=== PATIENT | male | born 1970 | race Caucasian/White ===

== ENCOUNTER 2018-07-25 23:01 | Inpatient (IN) | payer MEDICARE ==
[~2018-07-25] VITALS: Ht 182.9 cm; Wt 176.7 kg
--- NOTE | 2018-07-26 00:29 | NUR ---
ASSUMED CARE OF PATIENT. PATIENT REPORTS PAINFUL URINATION AND TOOTH PAIN. NO ACUTE DISTRESS NOTED. CALL LIGHT IN PLACE. WILL CONTINUE TO MONITOR.
[2018-07-26 00:46] LABS: MEAN CORPUSCULAR HEMOGLOBIN 30.6 pg (27.5-34.5); MEAN CORPUSCULAR HGB CONC 34.6 g/dL (33.2-36.2); MEAN CORPUSCULAR VOLUME 88.5 fL (81-97); MEAN PLATELET VOLUME 9.5 fL (7.4-10.4); PLATELET COUNT 170 x10^3/uL (130-400); RED BLOOD COUNT 5.32 x10^6/uL (4.38-5.82); RED CELL DISTRIBUTION WIDTH 12.9 % (9.4-14.8)
[2018-07-26 00:54] LABS: ANION GAP 7 mmol/L (5-15); CALCIUM 8.2 mg/dL (8.5-10.1); CHLORIDE 108 mmol/L (98-107); CREATININE 1.44 mg/dL (0.7-1.3)
[2018-07-26] MEDS ORDERED: ONDANSETRON ODT 4 MG PO ONE (01:00)
[2018-07-26] MEDS ORDERED: ONDANSETRON ODT 4 MG ONE (01:04)
--- NOTE | 2018-07-26 01:22 | NUR ---
blood and BC x 2 drawn by lab instructor. flu swabs and urine sample collected and sent to lab.
--- NOTE | 2018-07-26 01:22 | NUR ---
patient to x ray.
[2018-07-26] MEDS ORDERED: IBUPROFEN 200 MG TABLET PO ONE (01:30)
[2018-07-26 01:32] LABS: BASOPHILS # (AUTO) 0.02 x10^3/uL (0-0.1); BASOPHILS % (AUTO) 0 % (0-1); EOSINOPHILS # (AUTO) 0.03 x10^3/uL (0-0.4); EOSINOPHILS % (AUTO) 0 % (1-7); LYMPHOCYTES % (AUTO) 2 % (22-44); MD SCAN; MONOCYTES # (AUTO) 0.36 x10^3/uL (0.2-0.8); MONOCYTES % (AUTO) 2 % (2-9); NEUTROPHILS % (AUTO) 96 % (42-75)
[2018-07-26] MEDS ORDERED: IBUPROFEN 600 MG TABLET ONE (01:32)
[2018-07-26 01:35] LABS: CULTURE INDICATED? YES; MICROSCOPIC INDICATED
[2018-07-26 01:47] LABS: RAPID INFLUENZA A Negative (Negative); RAPID INFLUENZA B Negative (Negative)
[2018-07-26] MEDS ORDERED: HYDROmorphone 2 MG/ML, 1ML IV ONE (02:00)
[2018-07-26] MEDS ORDERED: CEFTRIAXONE PMX 2GM/50ML 50 ML IV ONE (02:00)
--- NOTE | 2018-07-26 02:03 | NUR ---
back from X ray. medicated for headache.
[2018-07-26] MEDS ORDERED: CEFTRIAXONE PMX 2GM/50ML 50 ML ONE (02:05)
[2018-07-26] MEDS ORDERED: HYDROmorphone 2 MG/ML, 1ML ONE (02:05)
--- NOTE | 2018-07-26 02:22 | NUR ---
IV placed. medicated for pain. patient to CT scan.
--- NOTE | 2018-07-26 02:38 | NUR ---
back from CT scan. antibiotic started.
--- NOTE | 2018-07-26 02:45 | NUR ---
bed assigned. report to KENDY Duarte
[2018-07-26 03:32] VITALS: BP 105/78
[2018-07-26] MEDS ORDERED: ONDANSETRON ODT 4 MG PO PRN (04:30)
[2018-07-26] MEDS ORDERED: ACETAMINOPHEN 325 MG TABLET PO PRN (04:30)
[2018-07-26] MEDS ORDERED: hydrALAzine 20 MG/ML, 1ML IVPush PRN (04:30)
[2018-07-26] MEDS ORDERED: ZOLPIDEM 5MG TABLET PO PRN (04:30)
[2018-07-26] MEDS: ONDANSETRON 2MG/ML, 2ML IVPush PRN ×2 (04:57→08:17)
[2018-07-26] MEDS: KETOROLAC 30 MG/1 ML IV PRN ×4 (04:57→22:55)
[2018-07-26] MEDS: ENOXAPARIN 40 MG/0.4 ML SQ SCH (04:58)
[2018-07-26] MEDS: SODIUM CHLORIDE 0.9% 1,000 ML IV SCH ×3 (05:10→17:47)
[2018-07-26 06:51] VITALS: BP 132/83
[2018-07-26] MEDS ORDERED: METH10TA4 PO (07:56)
[2018-07-26] MEDS ORDERED: ZOLP5TAB PO (08:00)
[2018-07-26] MEDS ORDERED: GABA-826 PO (08:38)
[2018-07-26] MEDS ORDERED: LEVO25TA2 PO (08:38)
[2018-07-26] MEDS ORDERED: LORA-446 PO (08:38)
[2018-07-26] MEDS ORDERED: BUPR75TA6 PO (08:38)
[2018-07-26] MEDS ORDERED: TOPI100T39 PO (08:38)
[2018-07-26] MEDS ORDERED: BENZ1TAB61 PO (08:38)
[2018-07-26] MEDS ORDERED: HALO5TAB5 PO (08:38)
[2018-07-26] MEDS ORDERED: OXYC-307 PO (08:38)
[2018-07-26] MEDS ORDERED: TRAM50TA2 PO (08:38)
[2018-07-26] MEDS: OXYcodone/APAP 10/325MG TABLET PO SCH ×3 (11:00→21:01)
[2018-07-26 12:40] VITALS: BP 123/80
[2018-07-26] MEDS: GABAPENTIN 400 MG CAPSULE PO SCH ×2 (14:35→21:02)
[2018-07-26] MEDS ORDERED: DIPHENHYDRAMINE 25 MG CAPSULE PO PRN (15:30)
[2018-07-26 19:24] VITALS: BP 123/82
[2018-07-26] MEDS ORDERED: FAMOTIDINE 20 MG TABLET PO SCH (21:00)
[2018-07-26] MEDS: BENZTROPINE 1 MG TABLET PO SCH (21:02)
[2018-07-26] MEDS: FAMOTIDINE 20 MG TABLET PO SCH (21:02)
[2018-07-26] MEDS: ZOLPIDEM 10MG TABLET PO SCH (21:02)
[2018-07-26] MEDS: TOPIRAMATE 100 MG TABLET PO SCH (21:02)
[2018-07-27] MEDS: SODIUM CHLORIDE 0.9% 1,000 ML IV SCH ×4 (00:30→23:30)
[2018-07-27 01:10] VITALS: BP 120/70
[2018-07-27] MEDS: CEFTRIAXONE PMX 2GM/50ML 50 ML IV SCH (02:00)
[2018-07-27] MEDS: LEVOTHYROXINE 125 MCG TABLET PO SCH (05:45)
[2018-07-27] MEDS: ENOXAPARIN 40 MG/0.4 ML SQ SCH (05:46)
[2018-07-27] MEDS: OXYcodone/APAP 10/325MG TABLET PO SCH ×4 (06:00→21:01)
[2018-07-27 06:03] LABS: BASOPHILS # (AUTO) 0.04 x10^3/uL (0-0.1); BASOPHILS % (AUTO) 1 % (0-1); EOSINOPHILS # (AUTO) 0.17 x10^3/uL (0-0.4); EOSINOPHILS % (AUTO) 3 % (1-7); LYMPHOCYTES # (AUTO) 1.18 x10^3/uL (1-3.4); LYMPHOCYTES % (AUTO) 20 % (22-44); MD NO; MEAN CORPUSCULAR HGB CONC 33.5 g/dL (33.2-36.2); MEAN CORPUSCULAR VOLUME 89.5 fL (81-97); MEAN PLATELET VOLUME 9.8 fL (7.4-10.4); MONOCYTES # (AUTO) 0.59 x10^3/uL (0.2-0.8); MONOCYTES % (AUTO) 10 % (2-9); NEUTROPHILS # (AUTO) 4.04 x10^3/uL (1.8-6.8); NEUTROPHILS % (AUTO) 67 % (42-75); PLATELET COUNT 149 x10^3/uL (130-400); RED BLOOD COUNT 4.84 x10^6/uL (4.38-5.82); RED CELL DISTRIBUTION WIDTH 13.2 % (9.4-14.8)
[2018-07-27 06:05] LABS: CHLORIDE 111 mmol/L (98-107)
[2018-07-27 06:16] LABS: ALANINE AMINOTRANSFERASE 51 U/L (12-78); ALKALINE PHOSPHATASE 115 U/L (45-117); ANION GAP 5 mmol/L (5-15); BILIRUBIN,TOTAL 0.2 mg/dL (0.2-1.0); CALCIUM 8.2 mg/dL (8.5-10.1); CREATININE 1.17 mg/dL (0.7-1.3); TOTAL PROTEIN 6.3 g/dL (6.4-8.2)
[2018-07-27 07:41] VITALS: BP 121/84
[2018-07-27] MEDS: TOPIRAMATE 100 MG TABLET PO SCH ×2 (07:48→21:01)
[2018-07-27] MEDS: GABAPENTIN 400 MG CAPSULE PO SCH ×3 (07:48→21:01)
[2018-07-27] MEDS: FAMOTIDINE 20 MG TABLET PO SCH ×2 (07:48→19:39)
[2018-07-27] MEDS: BENZTROPINE 1 MG TABLET PO SCH ×2 (07:48→21:01)
[2018-07-27] MEDS: KETOROLAC 30 MG/1 ML IV PRN ×3 (07:51→21:01)
[2018-07-27 13:13] VITALS: BP 135/80
[2018-07-27] MEDS ORDERED: SENNA/DOCUSATE TABLET ONE (14:09)
[2018-07-27] MEDS ORDERED: SENNA/DOCUSATE TABLET PO PRN (14:30)
[2018-07-27 19:50] VITALS: BP 112/74
[2018-07-27] MEDS: ZOLPIDEM 10MG TABLET PO SCH (23:31)
[2018-07-28] MEDS: CEFTRIAXONE PMX 2GM/50ML 50 ML IV SCH (01:57)
[2018-07-28 02:13] VITALS: BP 112/64
[2018-07-28] MEDS: KETOROLAC 30 MG/1 ML IV PRN ×3 (04:14→16:29)
[2018-07-28] MEDS: OXYcodone/APAP 10/325MG TABLET PO SCH ×2 (04:15→10:33)
[2018-07-28 05:32] LABS: BASOPHILS # (AUTO) 0.06 x10^3/uL (0-0.1); BASOPHILS % (AUTO) 1 % (0-1); EOSINOPHILS # (AUTO) 0.23 x10^3/uL (0-0.4); EOSINOPHILS % (AUTO) 4 % (1-7); LYMPHOCYTES # (AUTO) 1.97 x10^3/uL (1-3.4); LYMPHOCYTES % (AUTO) 36 % (22-44); MD NO; MEAN CORPUSCULAR HEMOGLOBIN 30.7 pg (27.5-34.5); MEAN CORPUSCULAR HGB CONC 34.6 g/dL (33.2-36.2); MEAN CORPUSCULAR VOLUME 88.8 fL (81-97); MEAN PLATELET VOLUME 10.1 fL (7.4-10.4); MONOCYTES # (AUTO) 0.68 x10^3/uL (0.2-0.8); MONOCYTES % (AUTO) 12 % (2-9); NEUTROPHILS # (AUTO) 2.56 x10^3/uL (1.8-6.8); NEUTROPHILS % (AUTO) 47 % (42-75); PLATELET COUNT 158 x10^3/uL (130-400); RED BLOOD COUNT 4.63 x10^6/uL (4.38-5.82); RED CELL DISTRIBUTION WIDTH 13.2 % (9.4-14.8)
[2018-07-28 05:45] LABS: CHLORIDE 113 mmol/L (98-107)
[2018-07-28 05:52] LABS: ALANINE AMINOTRANSFERASE 41 U/L (12-78); ALKALINE PHOSPHATASE 110 U/L (45-117); ANION GAP 4 mmol/L (5-15); BILIRUBIN,TOTAL 0.3 mg/dL (0.2-1.0); CALCIUM 8.4 mg/dL (8.5-10.1); CREATININE 1.19 mg/dL (0.7-1.3); TOTAL PROTEIN 6.2 g/dL (6.4-8.2)
[2018-07-28] MEDS: LEVOTHYROXINE 125 MCG TABLET PO SCH (06:37)
[2018-07-28] MEDS: ENOXAPARIN 40 MG/0.4 ML SQ SCH (06:40)
[2018-07-28 08:12] VITALS: BP 137/73
[2018-07-28] MEDS: BENZTROPINE 1 MG TABLET PO SCH (08:15)
[2018-07-28] MEDS: FAMOTIDINE 20 MG TABLET PO SCH (08:15)
[2018-07-28] MEDS: TOPIRAMATE 100 MG TABLET PO SCH (08:15)
[2018-07-28] MEDS: SODIUM CHLORIDE 0.9% 1,000 ML IV SCH ×2 (08:15→13:49)
[2018-07-28] MEDS: GABAPENTIN 400 MG CAPSULE PO SCH ×2 (08:15→16:28)
[2018-07-28 12:45] LABS: MICROSCOPIC NOT IND
[2018-07-28] MEDS ORDERED: OXYcodone 5 MG/5 ML ORAL.SOL UDC PO PRN (13:00)
[2018-07-28] MEDS ORDERED: CEFD300C37 PO (13:04)
[2018-07-28 13:33] VITALS: BP 123/79
[2018-07-28] MEDS ORDERED: OXYcodone IR 5MG TABLET PO PRN (16:30)
[2018-07-28 16:34] VITALS: BP 137/88
== END 2018-07-28 19:00 | disposition home or self-care (01) | DRG 871 ==
LOC: ED 07-26 01:50 → EDIP 07-26 01:54 → 4NOR 07-26 03:27
PROVIDERS: ADMIT Hospitalist; ATTEND Hospitalist
PROC: 0T9B70Z Drainage of Bladder with Drainage Device, Via Natural or Artificial Opening (ICD-10-PCS; principal; 2018-07-28)
DX: A41.9 Sepsis, unspecified organism (principal); N17.0 Acute kidney failure with tubular necrosis; N12 Tubulo-interstitial nephritis, not specified as acute or chronic; Z88.5 Allergy status to narcotic agent; Z88.8 Allergy status to other drugs, medicaments and biological substances; E03.9 Hypothyroidism, unspecified; E66.01 Morbid (severe) obesity due to excess calories; Z71.3 Dietary counseling and surveillance; E86.0 Dehydration; F31.9 Bipolar disorder, unspecified; F43.10 Post-traumatic stress disorder, unspecified; G25.81 Restless legs syndrome; K02.9 Dental caries, unspecified; S02.5XXA Fracture of tooth (traumatic), initial encounter for closed fracture; X58.XXXA Exposure to other specified factors, initial encounter; Y93.89 Activity, other specified; Y92.89 Other specified places as the place of occurrence of the external cause; Y99.8 Other external cause status; Z82.49 Family history of ischemic heart disease and other diseases of the circulatory system; Z83.3 Family history of diabetes mellitus
CPT/HCPCS: 36415; 71046; 74176; 80048; 80053; 81001; 81003; 83605; 83735; 84100; 84145; 85025; 87040; 87086; 87400; 96374; 96375; 99291; G0378; J0696; J1170; J1650; J1885; J2405; Q0162; J7030; Q0163

== ENCOUNTER 2019-09-08 23:13 | Emergency (ER) | payer MEDICARE ==
[~2019-09-08] VITALS: Ht 177.8 cm; Wt 159.4 kg
[~2019-09-08 23:13] MED LIST: BENZ1TAB61 PO; BUPR75TA6 PO; CEFD300C37 PO; GABA-826 PO; HALO5TAB5 PO; LEVO25TA2 PO; LORA-446 PO; METH10TA4 PO; OXYC-307 PO; TOPI100T39 PO; TRAM50TA2 PO; ZOLP5TAB PO
--- NOTE | 2019-09-08 23:49 | NUR ---
THIS IS A 48 YO MALE COMING IN FOR LEFT SIDED FACIAL PAIN AND GORDON WITH INTERMITTENT NUMBNESS STARTING 3 DAYS AGO. PT WSA SEEN AT [facility] YESTERDAY AND SENT HOME WITH "HIGH DOSE ANTIBIOTICS AND STEROIDS", WHEN ASKED WHAT HE WAS DIAGNOSED WITH THERE, PT STATES "THEY DON'T KNOW". PT A&OX4, DENIES N/V, DENIES ABD PAIN/SOB/CP, STATES "I'VE BEEN DRINKING A LOT OF WATER AND HAVING THE URGE TO PEE A LOT BUT NOT A LOT COMES OUT EVERY TIME". VSS, NAD AT THIS TIME, ACCOMPANIED BY SIGNIFICANT OTHER. CALL LIGHT IN REACH
[2019-09-08] MEDS ORDERED: DIPHENHYDRAMINE 50 MG/ML, 1ML ONE (23:56)
[2019-09-08] MEDS ORDERED: PROCHLORPERAZINE 5 MG/ML, 2ML ONE (23:56)
[2019-09-08] MEDS ORDERED: KETOROLAC 30 MG/1 ML ONE (23:56)
[2019-09-09] MEDS ORDERED: DIPHENHYDRAMINE 50 MG/ML, 1ML IVPush ONE
[2019-09-09] MEDS ORDERED: KETOROLAC 30 MG/1 ML IVPush ONE
[2019-09-09] MEDS ORDERED: PROCHLORPERAZINE 5 MG/ML, 2ML IVPush ONE
--- NOTE | 2019-09-09 00:17 | NUR ---
BREAK RN: IV ESTABLISHED, PT MEDICATED PER SEP, LABS DRAWN. PT. WAS AMBULATORY TO BR WITH STEADY GAIT AND BACK TO ROOM BEFORE IV START.
[2019-09-09 00:32] LABS: BASOPHILS # (AUTO) 0.03 x10^3/uL (0-0.1); BASOPHILS % (AUTO) 0 % (0-1); EOSINOPHILS # (AUTO) 0.23 x10^3/uL (0-0.4); EOSINOPHILS % (AUTO) 3 % (1-7); LYMPHOCYTES # (AUTO) 1.82 x10^3/uL (1-3.4); LYMPHOCYTES % (AUTO) 22 % (22-44); MD NO; MEAN CORPUSCULAR HEMOGLOBIN 29.2 pg (27.5-34.5); MEAN CORPUSCULAR HGB CONC 33.7 g/dL (33.2-36.2); MEAN CORPUSCULAR VOLUME 86.7 fL (81-97); MEAN PLATELET VOLUME 10.2 fL (7.4-10.4); MONOCYTES # (AUTO) 0.74 x10^3/uL (0.2-0.8); MONOCYTES % (AUTO) 9 % (2-9); NEUTROPHILS # (AUTO) 5.51 x10^3/uL (1.8-6.8); NEUTROPHILS % (AUTO) 66 % (42-75); PLATELET COUNT 165 x10^3/uL (130-400); RED BLOOD COUNT 5.01 x10^6/uL (4.38-5.82); RED CELL DISTRIBUTION WIDTH 12.9 % (9.4-14.8)
--- NOTE | 2019-09-09 00:34 | NUR ---
REPORT BACK TO STEPHANIE Gordon RN TO REASSUME CARE OF PT.
[2019-09-09 00:38] LABS: ALBUMIN 3.4 g/dL (3.4-5.0); ANION GAP 7 mmol/L (5-15); CALCIUM 8.2 mg/dL (8.5-10.1); CHLORIDE 116 mmol/L (98-107); CREATININE 1.11 mg/dL (0.7-1.3)
[2019-09-09 01:08] VITALS: BP 133/96
--- NOTE | 2019-09-09 01:08 | NUR ---
PATIENT SLEEPING AT THIS TIME, LEFT UNDISTURBED. RESPIRATIONS EVEN AND UNLABORED. VSS, CALL LIGHT IN REACH.
--- NOTE | 2019-09-09 01:39 | NUR ---
Patient/Caregiver given discharge instructions and they have confirmed that they understand the instructions. Patient ambulatory with steady gait.
== END 2019-09-09 01:49 | disposition home or self-care (01) ==
LOC: ED 09-09 01:30
DX: R51 Headache (principal); E03.9 Hypothyroidism, unspecified; E78.5 Hyperlipidemia, unspecified; G89.29 Other chronic pain; Z90.89 Acquired absence of other organs
CPT/HCPCS: 36415; 80048; 82040; 85025; 96374; 96375; 99284; J0780; J1200; J1885

== ENCOUNTER 2020-02-17 21:57 | Emergency (ER) | payer MEDICARE ==
[~2020-02-17] VITALS: Ht 177.8 cm; Wt 167.5 kg
[2020-02-17 22:31] LABS: MICROSCOPIC AUTO
[2020-02-17] MEDS ORDERED: SODIUM CHLORIDE FLUSH 10ML SYR IVF ONE ×2 (23:00→23:30)
[2020-02-17] MEDS ORDERED: CEFTRIAXONE PMX 1GM/50ML 50 ML IVPB ONE (23:00)
[2020-02-17] MEDS ORDERED: SODIUM CHLORIDE 0.9% 1,000ML IVBOLUS ONE ×2 (23:00→23:30)
[2020-02-17] MEDS ORDERED: ACETAMINOPHEN 500 MG TABLET PO ONE (23:00)
[2020-02-17] MEDS ORDERED: IBUPROFEN 800 MG TABLET PO STA (23:11)
[2020-02-17] MEDS ORDERED: OXYcodone/APAP 5/325MG TABLET PO ONE (23:30)
[2020-02-17] MEDS ORDERED: ONDANSETRON 2MG/ML, 2ML IVPush ONE (23:30)
[2020-02-17 23:34] LABS: MEAN CORPUSCULAR HEMOGLOBIN 28.6 pg (27.5-34.5); MEAN CORPUSCULAR HGB CONC 32.2 g/dL (33.2-36.2); MEAN CORPUSCULAR VOLUME 88.8 fL (81-97); MEAN PLATELET VOLUME 9.3 fL (7.4-10.4); PLATELET COUNT 148 x10^3/uL (130-400); RED BLOOD COUNT 5.31 x10^6/uL (4.38-5.82); RED CELL DISTRIBUTION WIDTH 14.1 % (9.4-14.8)
[2020-02-17 23:39] LABS: BASOPHILS # (AUTO) 0.01 x10^3/uL (0-0.1); BASOPHILS % (AUTO) 0 % (0-1); EOSINOPHILS # (AUTO) 0.02 x10^3/uL (0-0.4); EOSINOPHILS % (AUTO) 0 % (1-7); LYMPHOCYTES # (AUTO) 0.65 x10^3/uL (1-3.4); LYMPHOCYTES % (AUTO) 7 % (22-44); MD NO; MONOCYTES # (AUTO) 0.32 x10^3/uL (0.2-0.8); MONOCYTES % (AUTO) 3 % (2-9); NEUTROPHILS # (AUTO) 8.69 x10^3/uL (1.8-6.8); NEUTROPHILS % (AUTO) 90 % (42-75)
[2020-02-17] MEDS ORDERED: CEFTRIAXONE PMX 1GM/50ML 50 ML ONE (23:42)
[2020-02-17] MEDS ORDERED: OXYcodone/APAP 5/325MG TABLET ONE (23:42)
[2020-02-17] MEDS ORDERED: ONDANSETRON 2MG/ML, 2ML ONE (23:42)
[2020-02-17] MEDS ORDERED: IBUPROFEN 800 MG TABLET ONE (23:42)
[2020-02-17 23:45] LABS: ALBUMIN 3.8 g/dL (3.4-5.0); ANION GAP 6 mmol/L (5-15); CALCIUM 8.2 mg/dL (8.5-10.1); CHLORIDE 109 mmol/L (98-107)
[2020-02-17 23:49] LABS: ALANINE AMINOTRANSFERASE 24 U/L (12-78); ALKALINE PHOSPHATASE 91 U/L (45-117); BILIRUBIN,TOTAL 0.9 mg/dL (0.2-1.0); TOTAL PROTEIN 7.2 g/dL (6.4-8.2)
--- NOTE | 2020-02-17 23:53 | NUR ---
Pt PIV placed with second culture draw. Pt medicated per SEP. Verbal order from PA to hold tylenol d/t percocet order.
[2020-02-18 00:29] VITALS: BP 103/64
--- NOTE | 2020-02-18 00:52 | NUR ---
Pt d/c'd to self care. Pt alert, oriented and ambulatory. NAD. Pt educated on home care, RX's, and follow-up. Pt VU. Pt ambulatory out of ER.
== END 2020-02-18 00:54 | disposition home or self-care (01) ==
LOC: ED 23:09
DX: N30.00 Acute cystitis without hematuria (principal); R10.84 Generalized abdominal pain; G89.29 Other chronic pain; R50.9 Fever, unspecified; Z87.891 Personal history of nicotine dependence
CPT/HCPCS: 36415; 80053; 81001; 83605; 85025; 87040; 87086; 96365; 96375; 99284; J0696; J2405; J7030

== ENCOUNTER 2021-02-15 12:01 | Inpatient (IN) | payer MEDICARE ==
[~2021-02-15] VITALS: Ht 177.8 cm; Wt 175.3 kg
[~2021-02-15 12:01] MED LIST changes: -OXYC-307 PO; +OXYC-380 PO
--- NOTE | 2021-02-15 13:43 | NUR ---
ALTERATIONS TAILOR: PT TO ROOM FROM MELISSA JENKINS
--- NOTE | 2021-02-15 14:02 | NUR ---
PT IN [facility]; CLINICAL HISTORY OBTAINED. PT EDUCATED ON ER PROCESS AND VERBALIZES UNDERSTANDING. PT ATTACHED TO VS MONITORS WITH STABLE VS AT THIS TIME. PT HAS CALL LIGHT WITHIN REACH; AWAITING ERP.
[2021-02-15] MEDS ORDERED: CLINDAMYCIN 150 MG/ML, 6ML ONE (14:21)
--- NOTE | 2021-02-15 14:26 | NUR ---
PT TO [facility] [employer] AT THIS TIME.
[2021-02-15] MEDS ORDERED: CLINDAMYCIN 150 MG/ML, 6ML IM ONE (14:30)
--- NOTE | 2021-02-15 14:43 | NUR ---
PT MEDICATED PER FISH BILATERAL DELTOIDS PER PT REQUEST.
[2021-02-15] MEDS ORDERED: SODIUM CHLORIDE FLUSH 10ML SYR IVF ONE (16:00)
[2021-02-15] MEDS ORDERED: SODIUM CHLORIDE 0.9% 1,000 ML IV ONE (16:00)
[2021-02-15 16:14] LABS: BASOPHILS % (AUTO) 1 % (0-1); CALCIUM 8.8 mg/dL (8.5-10.1); CHLORIDE 109 mmol/L (98-107); CREATININE 1.04 mg/dL (0.7-1.3); EOSINOPHILS % (AUTO) 2 % (1-7); LYMPHOCYTES % (AUTO) 15 % (22-44); MEAN CORPUSCULAR HEMOGLOBIN 29.1 pg (27.5-34.5); MEAN CORPUSCULAR HGB CONC 33.9 g/dL (33.2-36.2); MEAN PLATELET VOLUME 9.3 fL (7.4-10.4); MONOCYTES % (AUTO) 9 % (2-9); NEUTROPHILS % (AUTO) 73 % (42-75); PLATELET COUNT 196 x10^3/uL (130-400); RED BLOOD COUNT 5.47 x10^6/uL (4.38-5.82); RED CELL DISTRIBUTION WIDTH 13.7 % (9.4-14.8)
[2021-02-15 16:15] LABS: ALBUMIN 3.7 g/dL (3.4-5.0)
[2021-02-15 16:27] LABS: ANION GAP 5 mmol/L (5-15)
[2021-02-15] MEDS ORDERED: ENALAPRILAT 1.25 MG/ML, 2ML IVPush PRN (16:30)
[2021-02-15] MEDS ORDERED: ONDANSETRON 2MG/ML, 2ML IVPush PRN ×2 (16:30→21:00)
[2021-02-15] MEDS ORDERED: HYDROmorphone 2 MG/ML, 1ML IVPush PRN (16:30)
[2021-02-15] MEDS ORDERED: MELATONIN 5 MG TABLET PO PRN (16:30)
[2021-02-15 16:45] LABS: FREE T4 (FREE THYROXINE) 0.73 ng/dL (0.76-1.46)
[2021-02-15] MEDS ORDERED: HYDROmorphone 2 MG/ML, 1ML ONE (16:47)
--- NOTE | 2021-02-15 16:59 | NUR ---
PT MEDICATED PER MAR FOR PAIN. PT HAS CALL LIGHT WITHIN REACH AND DENIES ANY OTHER NEEDS AT THIS TIME.
--- NOTE | 2021-02-15 17:21 | NUR ---
PT TO CT VIA [facility] AT THIS TIME.
--- NOTE | 2021-02-15 17:34 | NUR ---
ATTEMPTED REPORT X 1. PER FLOOR, LUCIO RN, WITH ANOTHER PT AND WILL CALL BACK. PT BACK FROM CT AT THIS TIME.
[2021-02-15] MEDS ORDERED: OMNIPAQUE 350 MG/ML, 100ML BOTTLE ONE (17:42)
--- NOTE | 2021-02-15 18:12 | NUR ---
REPORT OF PT TO RN LUCIO. ALL QUESTIONS ASWERED.
[2021-02-15] MEDS ORDERED: LIDOCAINE 1%, 20ML ONE (18:50)
[2021-02-15] MEDS ORDERED: EPINEPHRINE 1 MG/ML, 1ML ONE (18:50)
[2021-02-15] MEDS ORDERED: BUPIVACAINE/PF 0.25% ONE (18:50)
[2021-02-15] MEDS ORDERED: MIDAZOLAM 1 MG/ML, 2ML ONE (20:07)
[2021-02-15] MEDS ORDERED: FENTANYL PF 250 MCG/5ML ONE (20:07)
[2021-02-15] MEDS ORDERED: ROCURONIUM 10MG/ML,5ML ONE (20:17)
[2021-02-15] MEDS ORDERED: SUCCINYLCHOLINE 20 MG/ML, 10ML ONE (20:17)
[2021-02-15] MEDS ORDERED: DEXAMETHASONE 4 MG/ML, 1ML ONE (20:17)
[2021-02-15] MEDS ORDERED: ONDANSETRON 2MG/ML, 2ML ONE (20:17)
[2021-02-15] MEDS ORDERED: PROPOFOL 10 MG/ML, 20ML ONE (20:17)
[2021-02-15] MEDS ORDERED: LIDOCAINE 1%-EPI 1:100K, 20ML INFIL ONE (20:36)
[2021-02-15] MEDS ORDERED: FENTANYL PF 100 MCG/2ML ONE (20:50)
[2021-02-15] MEDS ORDERED: DIAZEPAM 5 MG/ML, 2ML ONE (20:51)
[2021-02-15] MEDS ORDERED: OXYcodone 5 MG/5 ML ORAL.SOL UDC ONE (20:51)
[2021-02-15] MEDS ORDERED: HYDROmorphone 1 MG/ML, 1ML INJ IV PRN (21:00)
[2021-02-15] MEDS ORDERED: PROMETHAZINE 25 MG/ML, 1ML IV PRN (21:00)
[2021-02-15] MEDS ORDERED: ALBUTEROL SULFATE 2.5 MG/3 ML NPPB PRN (21:00)
[2021-02-15] MEDS ORDERED: LABETALOL 5MG/ML, 20ML IV PRN (21:00)
[2021-02-15] MEDS ORDERED: OXYcodone 5 MG/5 ML ORAL.SOL UDC PO PRN (21:00)
[2021-02-15] MEDS ORDERED: KETOROLAC 30 MG/1 ML IV PRN (21:00)
[2021-02-15] MEDS ORDERED: MEPERIDINE/PF 25MG/0.5ML IVPush PRN (21:00)
[2021-02-15] MEDS ORDERED: DIAZEPAM 5 MG/ML, 2ML IV PRN ×2 (21:00)
[2021-02-15] MEDS ORDERED: METOCLOPRAMIDE 5 MG/ML, 2ML IV PRN (21:00)
[2021-02-15] MEDS ORDERED: hydrALAzine 20 MG/ML, 1ML IV PRN (21:00)
[2021-02-15] MEDS: FENTANYL PF 100 MCG/2ML IV PRN ×2 (21:00→21:05)
[2021-02-15] MEDS ORDERED: hydrALAzine 20 MG/ML, 1ML ONE (21:22)
[2021-02-15] MEDS ORDERED: KETOROLAC 30 MG/1 ML ONE (21:22)
[2021-02-15] MEDS ORDERED: HYDROmorphone 1 MG/ML, 1ML INJ ONE (21:22)
[2021-02-15 22:33] VITALS: BP 113/78
[2021-02-15] MEDS: TOPIRAMATE 100 MG TABLET PO SCH (23:00)
[2021-02-15] MEDS: GABAPENTIN 400 MG CAPSULE PO SCH (23:00)
[2021-02-15] MEDS: BENZTROPINE 1 MG TABLET PO SCH (23:00)
[2021-02-15] MEDS: BUPROPION 75 MG TABLET PO SCH (23:00)
[2021-02-15] MEDS: ZOLPIDEM 10MG TABLET PO SCH (23:00)
[2021-02-15] MEDS: HALOPERIDOL 0.5 MG TABLET PO SCH (23:00)
[2021-02-15] MEDS: HYDROmorphone 2 MG/ML, 1ML IVPush PRN (23:04)
[2021-02-15] MEDS: CEFTRIAXONE 2 GM in DEXTROSE 5% 50 ML IVPB SCH (23:06)
[2021-02-15] MEDS: SODIUM CHLORIDE 0.9% 1,000 ML IV SCH (23:06)
[2021-02-16] MEDS: DOXYCYCLINE 100 MG in DEXTROSE 5% 250 ML IV SCH ×2 (00:14→12:06)
[2021-02-16] MEDS: CHLORHEXIDINE 15 ML UDC MM SCH ×7 (00:18→21:24)
[2021-02-16] MEDS: ACETAMINOPHEN 325 MG TABLET PO PRN ×3 (02:01→19:36)
[2021-02-16] MEDS: HYDROmorphone 2 MG/ML, 1ML IVPush PRN ×4 (02:01→19:45)
[2021-02-16] MEDS: OXYcodone 5 MG/5 ML ORAL.SOL UDC PO PRN ×5 (03:23→22:37)
[2021-02-16 04:02] VITALS: BP 126/65
[2021-02-16 06:04] LABS: BASOPHILS % (AUTO) 1 % (0-1); EOSINOPHILS % (AUTO) 1 % (1-7); LYMPHOCYTES % (AUTO) 16 % (22-44); MEAN CORPUSCULAR HEMOGLOBIN 29.6 pg (27.5-34.5); MEAN CORPUSCULAR HGB CONC 34.5 g/dL (33.2-36.2); MEAN PLATELET VOLUME 9.6 fL (7.4-10.4); MONOCYTES % (AUTO) 10 % (2-9); NEUTROPHILS % (AUTO) 72 % (42-75); PLATELET COUNT 180 x10^3/uL (130-400); RED BLOOD COUNT 4.92 x10^6/uL (4.38-5.82); RED CELL DISTRIBUTION WIDTH 14.1 % (9.4-14.8)
[2021-02-16 06:10] LABS: ALBUMIN 3.1 g/dL (3.4-5.0); ANION GAP 4 mmol/L (5-15); CALCIUM 8.2 mg/dL (8.5-10.1); CHLORIDE 112 mmol/L (98-107)
[2021-02-16 06:14] LABS: ALANINE AMINOTRANSFERASE 22 U/L (12-78); ALKALINE PHOSPHATASE 97 U/L (45-117); BILIRUBIN,TOTAL 0.9 mg/dL (0.2-1.0); CREATININE 0.93 mg/dL (0.7-1.3); TOTAL PROTEIN 6.8 g/dL (6.4-8.2)
[2021-02-16] MEDS: LEVOTHYROXINE 125 MCG TABLET PO SCH (06:16)
[2021-02-16 07:35] VITALS: BP 111/67
[2021-02-16] MEDS: GABAPENTIN 400 MG CAPSULE PO SCH ×3 (08:52→21:23)
[2021-02-16] MEDS: BUPROPION 75 MG TABLET PO SCH ×3 (08:52→21:23)
[2021-02-16] MEDS: TOPIRAMATE 100 MG TABLET PO SCH ×2 (08:52→21:24)
[2021-02-16] MEDS: BENZTROPINE 1 MG TABLET PO SCH ×2 (08:52→21:23)
[2021-02-16] MEDS: HALOPERIDOL 0.5 MG TABLET PO SCH ×3 (08:52→21:23)
[2021-02-16 09:47] LABS: MICROSCOPIC AUTO
[2021-02-16] MEDS: SODIUM CHLORIDE 0.9% 1,000 ML IV SCH (12:07)
[2021-02-16 14:25] VITALS: BP 122/74
[2021-02-16 21:02] VITALS: BP 138/83
[2021-02-16] MEDS: ZOLPIDEM 10MG TABLET PO SCH (21:23)
[2021-02-16] MEDS: CEFTRIAXONE 2 GM in DEXTROSE 5% 50 ML IVPB SCH (22:36)
[2021-02-17] MEDS: DOXYCYCLINE 100 MG in DEXTROSE 5% 250 ML IV SCH ×2 (00:07→11:42)
[2021-02-17] MEDS: HYDROmorphone 2 MG/ML, 1ML IVPush PRN ×4 (00:07→21:40)
[2021-02-17 01:25] VITALS: BP 147/83
[2021-02-17] MEDS: CHLORHEXIDINE 15 ML UDC MM SCH ×6 (02:36→21:38)
[2021-02-17] MEDS: OXYcodone 5 MG/5 ML ORAL.SOL UDC PO PRN ×2 (05:01→09:58)
[2021-02-17] MEDS: LEVOTHYROXINE 125 MCG TABLET PO SCH (05:51)
[2021-02-17 07:10] VITALS: BP 130/74
[2021-02-17] MEDS: SODIUM CHLORIDE 0.9% 1,000 ML IV SCH (08:00)
[2021-02-17] MEDS: TOPIRAMATE 100 MG TABLET PO SCH ×2 (08:39→21:39)
[2021-02-17] MEDS: HALOPERIDOL 0.5 MG TABLET PO SCH ×3 (08:39→21:39)
[2021-02-17] MEDS: BUPROPION 75 MG TABLET PO SCH ×3 (08:39→21:39)
[2021-02-17] MEDS: GABAPENTIN 400 MG CAPSULE PO SCH ×3 (08:40→21:39)
[2021-02-17] MEDS: BENZTROPINE 1 MG TABLET PO SCH ×2 (08:40→21:39)
[2021-02-17] MEDS: ACETAMINOPHEN 325 MG TABLET PO PRN (09:58)
[2021-02-17 10:53] LABS: BASOPHILS % (AUTO) 2 % (0-1); EOSINOPHILS % (AUTO) 3 % (1-7); LYMPHOCYTES % (AUTO) 21 % (22-44); MEAN CORPUSCULAR HEMOGLOBIN 28.9 pg (27.5-34.5); MEAN CORPUSCULAR HGB CONC 33.6 g/dL (33.2-36.2); MEAN PLATELET VOLUME 8.8 fL (7.4-10.4); MONOCYTES % (AUTO) 11 % (2-9); NEUTROPHILS % (AUTO) 64 % (42-75); PLATELET COUNT 170 x10^3/uL (130-400); RED BLOOD COUNT 4.74 x10^6/uL (4.38-5.82); RED CELL DISTRIBUTION WIDTH 13.8 % (9.4-14.8)
[2021-02-17] MEDS: OXYcodone/APAP 10/325MG TABLET PO SCH ×3 (10:57→23:44)
[2021-02-17 11:04] LABS: ALANINE AMINOTRANSFERASE 23 U/L (12-78); ALBUMIN 3.1 g/dL (3.4-5.0); ANION GAP 4 mmol/L (5-15); CALCIUM 8.5 mg/dL (8.5-10.1); CHLORIDE 113 mmol/L (98-107)
[2021-02-17 11:06] LABS: ALKALINE PHOSPHATASE 99 U/L (45-117); BILIRUBIN,TOTAL 0.3 mg/dL (0.2-1.0); TOTAL PROTEIN 6.8 g/dL (6.4-8.2)
[2021-02-17 12:30] VITALS: BP 119/72
[2021-02-17] MEDS: ZOLPIDEM 10MG TABLET PO SCH (21:39)
[2021-02-17 21:58] VITALS: BP 114/67
[2021-02-17] MEDS: CEFTRIAXONE 2 GM in DEXTROSE 5% 50 ML IVPB SCH (22:48)
[2021-02-17] MEDS: DOXYCYCLINE 100MG TABLET PO SCH (23:44)
[2021-02-18 02:12] VITALS: BP 140/86
[2021-02-18] MEDS: CHLORHEXIDINE 15 ML UDC MM SCH ×6 (02:22→21:55)
[2021-02-18] MEDS: HYDROmorphone 2 MG/ML, 1ML IVPush PRN ×4 (02:22→21:55)
[2021-02-18] MEDS: LEVOTHYROXINE 125 MCG TABLET PO SCH (06:20)
[2021-02-18] MEDS: OXYcodone/APAP 10/325MG TABLET PO SCH ×4 (06:20→22:17)
[2021-02-18 06:25] VITALS: BP 103/68
[2021-02-18] MEDS: HALOPERIDOL 0.5 MG TABLET PO SCH ×3 (09:28→21:56)
[2021-02-18] MEDS: BENZTROPINE 1 MG TABLET PO SCH ×2 (09:28→21:55)
[2021-02-18] MEDS: TOPIRAMATE 100 MG TABLET PO SCH ×2 (09:29→21:55)
[2021-02-18] MEDS: GABAPENTIN 400 MG CAPSULE PO SCH ×3 (09:29→21:55)
[2021-02-18] MEDS: DOXYCYCLINE 100MG TABLET PO SCH (09:29)
[2021-02-18] MEDS: BUPROPION 75 MG TABLET PO SCH ×3 (09:37→21:55)
[2021-02-18 14:00] VITALS: BP 121/74
[2021-02-18] MEDS: ACETAMINOPHEN 325 MG TABLET PO PRN (14:33)
[2021-02-18] MEDS: ERTAPENEM 1 GM in SODIUM CHLORIDE 0.9% 50 ML IV SCH (14:33)
[2021-02-18] MEDS: ENOXAPARIN 40 MG/0.4 ML SQ SCH (18:18)
[2021-02-18] MEDS ORDERED: COVID-19 VAC,AD26(JANSSEN)/PF 0.5ML IM-VACC ONE (21:30)
[2021-02-18] MEDS ORDERED: PNEUMOC 13-VALENT VACC, 0.5 ML IM-VACC ONE (21:30)
[2021-02-18 21:50] VITALS: BP 145/73
[2021-02-18] MEDS: ZOLPIDEM 10MG TABLET PO SCH (21:55)
[2021-02-19] MEDS: CHLORHEXIDINE 15 ML UDC MM SCH ×6 (02:02→21:15)
[2021-02-19] MEDS: HYDROmorphone 2 MG/ML, 1ML IVPush PRN ×4 (02:03→18:38)
[2021-02-19 02:18] VITALS: BP 112/79
[2021-02-19 06:26] LABS: BASOPHILS % (AUTO) 1 % (0-1); EOSINOPHILS % (AUTO) 4 % (1-7); LYMPHOCYTES % (AUTO) 30 % (22-44); MEAN CORPUSCULAR HGB CONC 33.4 g/dL (33.2-36.2); MEAN PLATELET VOLUME 9.4 fL (7.4-10.4); MONOCYTES % (AUTO) 11 % (2-9); NEUTROPHILS % (AUTO) 54 % (42-75); PLATELET COUNT 187 x10^3/uL (130-400); RED BLOOD COUNT 4.71 x10^6/uL (4.38-5.82); RED CELL DISTRIBUTION WIDTH 13.8 % (9.4-14.8)
[2021-02-19 06:26] LABS: ALBUMIN 3.1 g/dL (3.4-5.0)
[2021-02-19 06:32] LABS: ALANINE AMINOTRANSFERASE 26 U/L (12-78); ALKALINE PHOSPHATASE 84 U/L (45-117); BILIRUBIN,TOTAL 0.5 mg/dL (0.2-1.0); CHOLESTEROL, TOTAL 100 mg/dL (140-239); CREATININE 1.02 mg/dL (0.7-1.3); HDL CHOL % 25 % (26-37); HDL CHOLESTEROL (DIRECT) 25 mg/dL (40-60); LDL CHOLESTEROL,CALCULATED 36 mg/dL (54-169); LDL/HDL RATIO 1.4 (0.5-3.0); TOTAL PROTEIN 6.9 g/dL (6.4-8.2); TRIGLYCERIDES 197 mg/dL (50-200); VLDL CHOLESTEROL 39 mg/dL (0-25)
[2021-02-19] MEDS: LEVOTHYROXINE 125 MCG TABLET PO SCH (06:40)
[2021-02-19] MEDS: OXYcodone/APAP 10/325MG TABLET PO SCH ×4 (06:40→21:13)
[2021-02-19 06:53] LABS: ANION GAP 6 mmol/L (5-15); CHLORIDE 106 mmol/L (98-107)
[2021-02-19 07:19] VITALS: BP 124/81
[2021-02-19] MEDS: BUPROPION 75 MG TABLET PO SCH ×3 (08:08→21:14)
[2021-02-19] MEDS: GABAPENTIN 400 MG CAPSULE PO SCH ×3 (08:09→21:12)
[2021-02-19] MEDS: TOPIRAMATE 100 MG TABLET PO SCH ×2 (08:09→21:13)
[2021-02-19] MEDS: BENZTROPINE 1 MG TABLET PO SCH ×2 (08:09→21:15)
[2021-02-19] MEDS: HALOPERIDOL 0.5 MG TABLET PO SCH ×3 (08:09→21:15)
[2021-02-19] MEDS: ERTAPENEM 1 GM in SODIUM CHLORIDE 0.9% 50 ML IV SCH (13:50)
[2021-02-19] MEDS ORDERED: OXYC5TAB98 PO ×2 (13:56→13:57)
[2021-02-19 14:25] VITALS: BP 147/84
[2021-02-19] MEDS ORDERED: GABAPENTIN 100 MG CAPSULE ONE (15:30)
[2021-02-19] MEDS ORDERED: DEXT30SU PO (16:13)
[2021-02-19] MEDS: ENOXAPARIN 40 MG/0.4 ML SQ SCH (17:40)
[2021-02-19 21:10] VITALS: BP 118/82
[2021-02-19] MEDS: ZOLPIDEM 10MG TABLET PO SCH (21:14)
[2021-02-19] MEDS: ACETAMINOPHEN 325 MG TABLET PO PRN (22:26)
[2021-02-19 22:44] VITALS: BP 121/86
== END 2021-02-19 23:00 | disposition home or self-care (01) | DRG 137 ==
LOC: ED 14:17 → EDIP 15:47 → 3N 18:30 → 4NE 20:03
PROVIDERS: ADMIT Hospitalist; ATTEND Hospitalist
PROC: 0W930ZZ Drainage of Oral Cavity and Throat, Open Approach (ICD-10-PCS; 2021-02-15)
PROC: 0CDWXZ1 Extraction of Upper Tooth, Multiple, External Approach (ICD-10-PCS; principal; 2021-02-15 19:30)
PROC: 02HV33Z Insertion of Infusion Device into Superior Vena Cava, Percutaneous Approach (ICD-10-PCS; 2021-02-19)
PROC: B548ZZA Ultrasonography of Superior Vena Cava, Guidance (ICD-10-PCS; 2021-02-19)
PROC: B5181ZA Fluoroscopy of Superior Vena Cava using Low Osmolar Contrast, Guidance (ICD-10-PCS; 2021-02-19)
DX: K04.7 Periapical abscess without sinus (principal); L03.211 Cellulitis of face; R65.10 Systemic inflammatory response syndrome (SIRS) of non-infectious origin without acute organ dysfunction; Z68.43 Body mass index [BMI] 50.0-59.9, adult; E78.5 Hyperlipidemia, unspecified; E03.9 Hypothyroidism, unspecified; F31.9 Bipolar disorder, unspecified; G47.33 Obstructive sleep apnea (adult) (pediatric); G89.29 Other chronic pain; J32.0 Chronic maxillary sinusitis; K02.9 Dental caries, unspecified; L30.4 Erythema intertrigo; J45.909 Unspecified asthma, uncomplicated; M27.2 Inflammatory conditions of jaws; Z87.11 Personal history of peptic ulcer disease; M54.9 Dorsalgia, unspecified; Z20.822 Contact with and (suspected) exposure to COVID-19; Z88.8 Allergy status to other drugs, medicaments and biological substances; Z88.1 Allergy status to other antibiotic agents; Z91.040 Latex allergy status; B95.5 Unspecified streptococcus as the cause of diseases classified elsewhere; R30.0 Dysuria; E66.9 Obesity, unspecified
CPT/HCPCS: 36415; 36573; 70100; 70487; 80048; 80053; 80061; 81001; 82040; 83605; 83735; 84100; 84145; 84439; 84443; 85025; 87040; 87070; 87075; 87205; 87635; 96372; 96374; G0378; J0171; J0696; J1100; J1170; J1335; J1650; J2250; J2405; J2704; J3010; J3360; J7060; Q9967; C1751; J0330; J0360; J7030

== ENCOUNTER 2021-02-21 13:27 | Outpatient (CLI) | payer MEDICARE ==
[~2021-02-21 13:27] MED LIST changes: +DEXT30SU PO; +OXYC5TAB98 PO
== END 2021-02-21 23:59 | disposition home or self-care (01) ==
LOC: RAD 13:27
PROVIDERS: ATTEND Internal Medicine Infectious Disease
DX: K12.2 Cellulitis and abscess of mouth (principal); Z79.2 Long term (current) use of antibiotics
CPT/HCPCS: 36573; C1751

== ENCOUNTER 2021-03-12 12:16 | Outpatient (CLI) | payer MEDICARE ==
[~2021-03-12 12:16] MED LIST changes: -OXYC-380 PO; +OXYC-501 PO
== END 2021-03-12 23:59 | disposition home or self-care (01) ==
LOC: RAD 12:16
PROVIDERS: ATTEND Internal Medicine Infectious Disease
DX: K12.2 Cellulitis and abscess of mouth (principal); E03.9 Hypothyroidism, unspecified; E78.5 Hyperlipidemia, unspecified; F31.9 Bipolar disorder, unspecified; J45.909 Unspecified asthma, uncomplicated; G47.33 Obstructive sleep apnea (adult) (pediatric); Z79.2 Long term (current) use of antibiotics; Z79.890 Hormone replacement therapy; Z79.891 Long term (current) use of opiate analgesic; Z79.899 Other long term (current) drug therapy
CPT/HCPCS: 36573; C1751